=== PATIENT | female | born 1990 | race Caucasian/White ===

== ENCOUNTER 2017-01-20 21:52 | Emergency (ER) | payer OTHER ==
[~2017-01-20 21:52] MED LIST: ADVAIR HFA 115-12 GM IH; ALBUTEROL17 G1; AMOXICILLIN500 M1 PO; BENTYL20 MG PO; BUDEPRION SR100 M1 PO; CLEOCIN PO; CLINDAMYCIN HC300 MG PO; CLONIDINE HCL0.1 MG PO; DICLOFENAC PO; FAMOTIDINE20 MG PO; FLONASE 0.05% N16 G1; KEPPRA500 MG PO; NAPROSYN250 M1 PO; NORCO 5/325 TAB1 TAB PO; PHENERGAN25 MG PO; PREDNISONE PO; PREDNISONE50 MG PO; SINGULAIR PO; ZOFRAN ODT4 MG PO; ZOLOFT PO
[2017-01-21 03:18] LABS: URINE SOURCE CLEAN CATCH
[2017-01-21 03:25] LABS: URINE APPEARANCE CLEAR; URINE BILIRUBIN NEG (NEG); URINE BLOOD TRACE (NEG); URINE COLOR YELLOW; URINE GLUCOSE NEG (NEG); URINE KETONE NEG (NEG); URINE LEUKOCYTE ESTERASE 3+ (NEG); URINE NITRATE NEG (NEG); URINE PROTEIN NEG (NEG); URINE SPECIFIC GRAVITY 1.016 (1.003-1.035)
[2017-01-21 03:28] LABS: CULTURE INDICATED? YES; URBCS1 AUWI 0-2 /[HPF] (0-2); URINE BACTERIA AUWI 1+ (NEGATIVE); URINE SQUAMOUS EPITHELIAL CELL OCC /[HPF]
[2017-05-01] MEDS ORDERED: KEPPRA1000 MG PO (09:50)
[2017-05-01] MEDS ORDERED: VOLTAREN75 MG PO (09:51)
[2017-05-01] MEDS ORDERED: ZYRTEC10 M1 PO (09:52)
[2017-05-01] MEDS ORDERED: SINGULAIR PO (09:52)
[2017-05-01] MEDS ORDERED: OMEPRAZOLE20 M1 PO (09:53)
[2017-05-01] MEDS ORDERED: SPRINTEC (09:54)
[2017-05-01] MEDS ORDERED: DULERA 100 MCG/13 GM INH (09:54)
[2017-05-01] MEDS ORDERED: ALBUTEROL 0.5ML INH (09:55)
[2017-05-01] MEDS ORDERED: PROAIR HFA8.5 GM INH (09:55)
[2017-05-02] MEDS ORDERED: NEBULIZER (12:20)
== END 2017-01-21 04:13 | disposition home or self-care (01) ==
LOC: CED 21:52
PROVIDERS: Emergency Medicine
DX: N39.0 Urinary tract infection, site not specified (principal); Z88.1 Allergy status to other antibiotic agents; Z88.5 Allergy status to narcotic agent; Z88.2 Allergy status to sulfonamides; Z88.8 Allergy status to other drugs, medicaments and biological substances
CPT/HCPCS: 81003; 84703; 87086; 99282

== ENCOUNTER 2017-02-17 20:50 | Emergency (ER) | payer OTHER ==
[2017-05-01] MEDS ORDERED: KEPPRA1000 MG PO (09:50)
[2017-05-01] MEDS ORDERED: VOLTAREN75 MG PO (09:51)
[2017-05-01] MEDS ORDERED: SINGULAIR PO (09:52)
[2017-05-01] MEDS ORDERED: ZYRTEC10 M1 PO (09:52)
[2017-05-01] MEDS ORDERED: OMEPRAZOLE20 M1 PO (09:53)
[2017-05-01] MEDS ORDERED: SPRINTEC (09:54)
[2017-05-01] MEDS ORDERED: DULERA 100 MCG/13 GM INH (09:54)
[2017-05-01] MEDS ORDERED: PROAIR HFA8.5 GM INH (09:55)
[2017-05-01] MEDS ORDERED: ALBUTEROL 0.5ML INH (09:55)
[2017-05-02] MEDS ORDERED: NEBULIZER (12:20)
== END 2017-02-17 23:30 | disposition home or self-care (01) ==
LOC: CED 20:50
DX: L55.0 Sunburn of first degree (principal); F90.9 Attention-deficit hyperactivity disorder, unspecified type; F32.9 Major depressive disorder, single episode, unspecified; F43.10 Post-traumatic stress disorder, unspecified; M41.9 Scoliosis, unspecified; Z88.1 Allergy status to other antibiotic agents; Z88.6 Allergy status to analgesic agent; Z88.5 Allergy status to narcotic agent; Z88.8 Allergy status to other drugs, medicaments and biological substances
CPT/HCPCS: 99282

== ENCOUNTER 2017-03-16 20:30 | Emergency (ER) | payer OTHER ==
[~2017-03-16] VITALS: Ht 144.8 cm; Wt 76.7 kg
--- NOTE | ~2017-03-16 | US98 ---
[facility] A Service of [facility] RADIOLOGY TEXT RESULTS PATIENT: REJI LANDAVERDE LOCATION: CFTX : 88 UNIT #: [id number] AGE: [address]: Joya Borrero APRN SEX: F ORDER DR: [id number] [facility] [address] [place], [place] [address] [id number] E MR#: [id number] #: [id number] NAME: REJI LANDAVERDE : 1990 SEX: F STUDY DATE/TIME: 03/17/2017 0:37 UNIT: [facility] ROOM: STUDY DESCRIPTION: US Pelvic Non-OB Complete Attending Physician: Joya Borrero A.P.R.N. Ordering Physician: Joya Borrero A.P.R.N. Primary Care Physician: Zoe Garcia M.D. MEDICAL IMAGING REPORT This report is preliminary unless electronic signature is present EXAM Pelvic ultrasound INDICATIONS Left lower quadrant abdominal and pelvic pain off and on for the past 5 years, but worse today. PROCEDURE [place]-scale and Doppler imaging of the pelvis via transabdominal transvaginal approach. And 12/21/2015 FINDINGS Uterus anteverted measures 7.1 x 2.7 x 3.4 cm. Endometrium measures 5 mm in thickness. Right ovary normal. Left ovary contains a 4.3 x 4.6 x 3.6 cm complex cyst. IMPRESSION Complex cyst in the left ovary measures up to 4.6 cm, and has features in keeping with a benign hemorrhagic cyst. It can be followed to document resolution. Otherwise normal. Dictated by... Rob Zheng M.D. THIS IS AN ELECTRONICALLY VERIFIED REPORT Rob Zheng M.D. at 03/17/2017 10:24 PM SUSANA/riley TD: 03/17/2017 08:09 JOB #: [id number] [facility] A Service [facility] RADIOLOGY TEXT RESULTS PATIENT: REJI LANDAVERDE LOCATION: CFRI : 89 UNIT #: [id number] AGE: [address]: Joya Borrero APRN SEX: F ORDER DR: MEDICAL IMAGING REPORT Page 1 of 1 COPY
[2017-03-16 21:47] LABS: BASOPHIL# 0.1 X10e3 (0-0.3); BASOPHIL% 0.7 % (0-2.5); EOSINOPHIL# 0.1 X10e3 (0-0.7); EOSINOPHIL% 1.7 % (0.0-7.0); HEMATOCRIT 42.2 % (35.0-45.0); HEMOGLOBIN 14.3 gm/dL (12.0-16.0); LYMPHOCYTE# 2.6 X10e3 (1.0-3.5); LYMPHOCYTE% 31.5 % (17.0-45.0); MEAN CELL VOLUME 91.4 FL (83-96); MEAN CORPUSCULAR HEMOGLOBIN 30.9 PG (28-34); MEAN CORPUSCULAR HGB CONC 33.8 g/dL (30-36); MEAN PLATELET VOLUME 7.2 FL (6.5-11.5); MONOCYTE# 0.8 X10e3 (0-1.0); NEUTROPHIL# 4.6 X10e3 (1.5-7.1); NEUTROPHIL% 56.1 % (40-75); PLATELET COUNT 296 X10e3 (140-420); RED BLOOD COUNT 4.62 X10e (3.90-5.30); RED CELL DISTRIBUTION WIDTH 13.7 % (11.0-15.5); WHITE BLOOD COUNT 8.2 X10e3 (4.0-10.5)
[2017-03-16 21:53] LABS: DIFF IND NO
[2017-03-16 22:11] LABS: URINE SOURCE CLEAN CATCH
[2017-03-16 22:23] LABS: URINE APPEARANCE TURBID; URINE BILIRUBIN NEG (NEG); URINE BLOOD NEG (NEG); URINE COLOR YELLOW; URINE GLUCOSE NEG (NEG); URINE KETONE NEG (NEG); URINE LEUKOCYTE ESTERASE 3+ (NEG); URINE NITRATE NEG (NEG); URINE PH 7.5 (5-8); URINE PROTEIN NEG (NEG)
[2017-03-16 22:24] LABS: ALBUMIN SERUM 4.3 g/dL (3.5-5.0); BILIRUBIN, DIRECT 0.1 mg/dL (0.0-0.2); BILIRUBIN,INDIRECT 0.4 mg/dL (0.0-0.9); BILIRUBIN,TOTAL 0.5 mg/dL (0.2-2.0); BUN/CREATININE RATIO 21.66; CALCIUM SERUM 9.1 mg/dL (8.4-10.2); CREATININE SERUM 0.6 mg/dL (0.6-1.4); GLOM FILT RATE Estimated 124.9 mL/min (>60); POTASSIUM 4.1 mmol/L (3.5-5.1); PROTEIN TOTAL SERUM 7.3 g/dL (6.0-8.3)
[2017-03-16 22:25] LABS: CULTURE INDICATED? YES; U HYALINE CASTS AUWI 0-2 /[LPF]; URINE BACTERIA AUWI 2+ (NEGATIVE); URINE SQUAMOUS EPITHELIAL CELL MOD /[HPF]
[2017-05-01] MEDS ORDERED: KEPPRA1000 MG PO (09:50)
[2017-05-01] MEDS ORDERED: VOLTAREN75 MG PO (09:51)
[2017-05-01] MEDS ORDERED: ZYRTEC10 M1 PO (09:52)
[2017-05-01] MEDS ORDERED: SINGULAIR PO (09:52)
[2017-05-01] MEDS ORDERED: OMEPRAZOLE20 M1 PO (09:53)
[2017-05-01] MEDS ORDERED: SPRINTEC (09:54)
[2017-05-01] MEDS ORDERED: DULERA 100 MCG/13 GM INH (09:54)
[2017-05-01] MEDS ORDERED: PROAIR HFA8.5 GM INH (09:55)
[2017-05-01] MEDS ORDERED: ALBUTEROL 0.5ML INH (09:55)
[2017-05-02] MEDS ORDERED: NEBULIZER (12:20)
== END 2017-03-17 01:20 | disposition home or self-care (01) ==
LOC: CFTX 20:30 → CED 20:30 → CFTX 21:32
PROVIDERS: Nurse Practitioner
DX: N83.202 Unspecified ovarian cyst, left side (principal); N39.0 Urinary tract infection, site not specified; F41.9 Anxiety disorder, unspecified; F32.9 Major depressive disorder, single episode, unspecified; Z88.1 Allergy status to other antibiotic agents; Z98.890 Other specified postprocedural states; M54.9 Dorsalgia, unspecified; Z88.2 Allergy status to sulfonamides; Z88.5 Allergy status to narcotic agent
CPT/HCPCS: 36415; 76830; 76856; 80048; 80076; 81003; 82150; 83690; 84703; 85025; 87086; 99284

== ENCOUNTER → 2017-05-02 | Day surgery (SDC) | payer OTHER ==
[~2017-05-02] MED LIST changes: +ALBUTEROL 0.5ML INH; +DULERA 100 MCG/13 GM INH; +KEPPRA1000 MG PO; +NEBULIZER; +OMEPRAZOLE20 M1 PO; +PROAIR HFA8.5 GM INH; +SPRINTEC; +VOLTAREN75 MG PO; +ZYRTEC10 M1 PO
--- NOTE | ~2017-05-02 | OR ---
Unit #: [id number] #: [id number] Patient: REJI LANDAVERDE [id number] [address] [place], [place] [address] [id number] MR#: [id number] NAME: REJI LANDAVERDE ROOM: Date of Procedure: 05/02/2017 Admission Date: 05/02/2017 Surgeon: Raymond Caicedo Jr., M.D. : 1990 Attending Physician: Raymond Caicedo Jr., M.D. Primary Care Physician: Zoe Garcia M.D. PROCEDURE OPERATIVE NOTE INDICATIONS FOR PROCEDURE Patient is a 26-year-old, white female who has been having some intermittent vague abdominal pain. She has had a known hiatal hernia and apparently has had problems with reflux off and on since she was a young child. She was recently having some rectal bleeding and it was felt she needed upper and lower endoscopy. She has had no recent scopes. She has had a prep at home. She understands the procedure including the risks including that of perforation and bleeding and consents. PREOPERATIVE DIAGNOSIS Rectal bleeding with intractable reflux symptoms. POSTOPERATIVE DIAGNOSIS On upper endoscopy, the patient was noted to have evidence of 1-2+ ulcerative distal esophagitis, but no evidence of any ulcer disease and a prominent ampulla, but this appeared normal in appearance; and, on colonoscopy to the distal ileum, she was noted to have normal findings except for some internal and external hemorrhoids. ANESTHESIA MAC anesthesia. SURGEON Dr. Raymond Caicedo Jr. OPERATION Flexible fiberoptic esophagogastroduodenoscopy and flexible colonoscopy to the distal ileum. PROCEDURE The patient was positioned in Cabrera position, left side down. After being given MAC anesthesia, Olympus XQ scope was passed in the proximal esophagus. Entire esophagus was examined. Proximal two thirds appeared normal. In the GE junction, there was some 1-2+ ulcerative distal esophagitis without stenosis. Scope was advanced through the GE junction and the cardia on down to fundic and antral region of the stomach and retroflexed back up to the area of the cardia. There was a small hiatal hernia present. The stomach did distend well without evidence of rigidity. No evidence of any gastric ulcer disease. There was no significant gastritis. Scope was advanced to prepyloric region through the pylorus and duodenal bulb and down to second portion of duodenum. The entire duodenal portion of examination was within normal limits. In the Unit #: [id number] #: [id number] Patient: REJI LANDAVERDE area of the second portion of the duodenum, the ampulla was visualized and appeared totally normal. The scope was then slowly brought back and patient repositioned for a colonoscopy. Digital rectal examination was performed, which revealed no palpable mass or tenderness. No blood or stool in the rectal ampulla. Olympus colonoscope was advanced in the anal canal up to rectum. Retroflexed down to the area of the anorectal region. There was no evidence of any fissures. There were some slightly dilated internal hemorrhoids, which were not actively bleeding and, likewise, there initially external hemorrhoids that were noted externally, which were not actively bleeding. The colonoscope was straightened and advanced up in the rectosigmoid, in the sigmoid and descending colon areas, around the splenic flexure and the transverse colon, around hepatic flexure and ascending colon, and down in the area of the cecum. Light from the tip of the scope could be seen transilluminating through the right lower quadrant abdominal wall area. Scope was advanced up to distal ileum approximately 10-12 inches. There was no evidence of any ileitis or inflammatory bowel disease. The scope was slowly removed. Patient tolerated the procedure well and was discharged in satisfactory condition. Dictated by... Raymond Caicedo Jr., MCorey MELARA/jeromy TD: 05/06/2017 09:43 JOB #: [id number] PROCEDURE OPERATIVE NOTE Page 1 of 1 X Raymond Caicedo MD X PROCEDURE OPERATIVE NOTE
== END | disposition home or self-care (01) ==
LOC: COPS 11:28
DX: K64.8 Other hemorrhoids (principal); K64.4 Residual hemorrhoidal skin tags; K22.10 Ulcer of esophagus without bleeding; K44.9 Diaphragmatic hernia without obstruction or gangrene; K21.9 Gastro-esophageal reflux disease without esophagitis; M41.9 Scoliosis, unspecified; J45.909 Unspecified asthma, uncomplicated; F32.9 Major depressive disorder, single episode, unspecified; K58.9 Irritable bowel syndrome, unspecified; G40.909 Epilepsy, unspecified, not intractable, without status epilepticus; Z88.1 Allergy status to other antibiotic agents; Z88.6 Allergy status to analgesic agent; Z88.5 Allergy status to narcotic agent; Z88.2 Allergy status to sulfonamides; Z79.899 Other long term (current) drug therapy; Z98.890 Other specified postprocedural states
CPT/HCPCS: 82947; 84703; J2250

== ENCOUNTER 2017-05-12 00:25 | Emergency (ER) | payer OTHER ==
[~2017-05-12] VITALS: Ht 144.8 cm; Wt 72.6 kg
== END 2017-05-12 05:24 | disposition home or self-care (01) ==
LOC: CED 00:25
DX: S56.911A Strain of unspecified muscles, fascia and tendons at forearm level, right arm, initial encounter (principal); J45.909 Unspecified asthma, uncomplicated; Z79.899 Other long term (current) drug therapy; Z88.0 Allergy status to penicillin; Z88.5 Allergy status to narcotic agent; Z88.2 Allergy status to sulfonamides; Z88.1 Allergy status to other antibiotic agents; Z88.7 Allergy status to serum and vaccine; X58.XXXA Exposure to other specified factors, initial encounter
CPT/HCPCS: 99283

== ENCOUNTER 2017-05-15 16:34 | Emergency (ER) | payer OTHER ==
[~2017-05-15] VITALS: Ht 144.8 cm; Wt 72.6 kg
== END 2017-05-15 17:30 | disposition home or self-care (01) ==
LOC: CED 16:34 → CFTX 17:17 → CED 17:30
DX: J06.9 Acute upper respiratory infection, unspecified (principal); F90.9 Attention-deficit hyperactivity disorder, unspecified type; Z77.22 Contact with and (suspected) exposure to environmental tobacco smoke (acute) (chronic); Z88.1 Allergy status to other antibiotic agents; Z88.2 Allergy status to sulfonamides; Z88.6 Allergy status to analgesic agent; Z79.899 Other long term (current) drug therapy
CPT/HCPCS: 87651; 99283